=== PATIENT | female | born 1990 | race Hispanic/Latino ===

== ENCOUNTER 2018-01-01 21:59 | Inpatient (IN) | payer MEDICAID ==
[2018-01-01 22:52] LABS: HCG,QUALITATIVE URINE POSITIVE (NEGATIVE)
[2018-01-01 22:53] LABS: BASO # 0.1 K/uL (0.0-0.2); BASO % 0.4 % (0.0-2.0); EOS # 0.1 K/uL (0.0-0.7); EOS % 0.4 % (0.0-4.0); HEMOGLOBIN 12.6 g/dL (11.0-16.0); LYMPH # 3.4 K/uL (1.0-4.3); LYMPH % 20.2 % (20.0-40.0); MEAN CORPUSCULAR HEMOGLOBIN 30.4 pg (27.0-31.0); MEAN CORPUSCULAR HGB CONC 33.7 g/dL (33.0-37.0); MEAN PLATELET VOLUME 8.3 fL (7.2-11.7); MONO # 0.9 K/uL (0.0-0.8); MONO % 5.1 % (0.0-10.0); NEUT # 12.5 K/uL (1.8-7.0); NEUT % 73.9 % (50.0-75.0); RBC 4.15 Mil/uL (3.80-5.20); RED CELL DISTRIBUTION WIDTH 13.5 % (11.5-14.5); WHITE BLOOD COUNT 16.9 K/uL (4.8-10.8)
[2018-01-01 22:56] LABS: SQUAMOUS EPITHIAL 3 /hpf (0-5); URINE BACTERIA RARE (<OCC); URINE BILIRUBIN NEGATIVE (NEGATIVE); URINE BLOOD NEGATIVE (NEGATIVE); URINE CALCIUM OXALATE CRYSTALS FEW /hpf (<OCC); URINE CLARITY Hazy (Clear); URINE COLOR Amber (YELLOW); URINE GLUCOSE (UA) NORMAL (Normal); URINE LEUKOCYTE ESTERASE NEG Leu/uL (Negative); URINE PROTEIN NEGATIVE (NEGATIVE)
[2018-01-01 23:03] LABS: BLOOD UREA NITROGEN 11 mg/dL (7-17); GFR AFRICAN-AMERICAN > 60; GFR NON-AFRICAN AMERICAN > 60
[2018-01-01 23:04] LABS: ALB/GLOB RATIO 1.3 (1.0-2.1); ALBUMIN 3.9 g/dL (3.5-5.0); ALT/SGPT 27 U/L (9-52); AST/SGOT 14 U/L (14-36); CALCIUM 9.1 mg/dl (8.6-10.4)
[2018-01-01 23:10] LABS: BARBITURATES, UR NEGATIVE (NEGATIVE); BENZODIAZEPINES, UR POSITIVE (NEGATIVE); OPIATES, UR POSITIVE (NEGATIVE); PHENCYCLIDINE, UR NEGATIVE (NEGATIVE)
--- NOTE | 2018-01-02 00:06 | C.PDOC ---
History Of Present Illness Pt is here requesting detox from Opioids and Benzos. Time Seen by Provider: 01/01/18 22:30 Chief Complaint (Nursing): Substance Abuse Past Medical History Reviewed: Historical Data, Nursing Documentation, Vital Signs Vital Signs: Last Vital Signs Temp 98.6 F 01/01/18 22:11 Pulse 76 01/01/18 22:11 Resp 20 01/01/18 22:11 BP 117/68 01/01/18 22:11 Pulse Ox 98 01/01/18 22:11 - Medical History PMH: Bipolar Disorder, Depression Other PMH: Pt states that she is 16 weeks Surgical History: No Surg Hx Family History: States: Unknown Family Hx - Social History Hx Tobacco Use: Yes Hx Alcohol Use: No Hx Substance Use: Yes (Snorts Heroin) - Immunization History Hx Tetanus Toxoid Vaccination: No Hx Influenza Vaccination: No Hx Pneumococcal Vaccination: No Review Of Systems Except As Marked, All Systems Reviewed And Found Negative. Constitutional: Negative for: Fever Cardiovascular: Negative for: Chest Pain Respiratory: Negative for: Cough, Shortness of Breath Gastrointestinal: Negative for: Abdominal Pain Genitourinary: Negative for: Dysuria, Vaginal Discharge, Vaginal Bleeding, Pelvic Pain Musculoskeletal: Negative for: Neck Pain, Back Pain Skin: Negative for: Rash Neurological: Negative for: Weakness, Numbness Physical Exam - Physical Exam Appears: Non-toxic, No Acute Distress Skin: Normal Color, Warm, Dry, No Rash Head: Atraumatic, Normacephalic Eye(s): bilateral: Normal Inspection, PERRL, EOMI Neck: Normal ROM, Supple Cardiovascular: Rhythm Regular Respiratory: Normal Breath Sounds, No Accessory Muscle Use Gastrointestinal/Abdominal: Soft, No Tenderness, Other (Gravid) Back: No CVA Tenderness Extremity: Normal ROM, No Pedal Edema, No Calf Tenderness Neurological/Psych: Oriented x3, Normal Motor, Normal Sensation ED Course And Treatment - Laboratory Results Result Diagrams: 01/01/18 22:46 01/01/18 22:46 Urine POC: Positive O2 Sat by Pulse Oximetry: 98 Pulse Ox Interpretation: Normal Progress Note: Pt is medically stable for detox admission. Disposition Counseled Patient/Family Regarding: Studies Performed, Diagnosis, Smoking Cessation - Disposition Disposition: HOSPITALIZED Disposition Time: 00:06 Condition: STABLE - Clinical Impression Clinical Impression: Opioid dependence, Sedative hypnotic or anxiolytic dependence, Decision To Admit - Pt Status Changed To: Hospital Disposition Of: Inpatient - Admit Certification Admit to Inpatient:: After my assessment, the patient will require hospitalization for at least two midnights. This is because of the severity of symptoms shown, intensity of services needed, and/or the medical risk in this patient being treated as an outpatient. - InPatient: Physician Admission Certification: I certify that this patient requires 2 or more midnights of care for the following reason:: Detox. - . Bed Request Type: Detox Admitting Physician: Hansel Amado Patient Diagnosis: Opioid dependence, Sedative hypnotic or anxiolytic dependence,
--- NOTE | 2018-01-02 00:27 | PCM.BM ---
<Moriah Myers - Last Filed: 01/02/18 00:26> Treatment Plan Problems - Problems identified on initial assessmt Ineffective Coping Skills Date Initiated: 01/02/18 Time Initiated: 00:26 Assessment reference: NA Status: Active Treatment assets and liabiliti Patient Assests: ADL independent Patient Liabilities: live alone, financial problems, poor support system, substance abuse, other - Milieu Protocol Maintain good personal hygiene: daily Encourage regular showers, daily Remind patient to perform daily oral care, other Assist patient to perform ADL's Maintain personal safety: every shift Educate patient to report safety concerns to staff, every shift Monitor environment for contraband/sharps Medication safety: Monitor for expected outcome, potential side effects: every shift, Assess barriers to learning: every shift, Assess readiness for medication education: every shift <Hansel Amado - Last Filed: 01/02/18 12:07> - Diagnosis (1) Opioid dependence Status: Acute Interventions: 01/02/18 12:07 * Assess 7x/week regarding severity of withdrawal * Educate regarding risks, benefits, side effects and alternatives of medications * Use Motivational Interviewing for abstinence * Use CBT for relapse prevention * Medication management for withdrawal symptoms * Encourage medication assisted treatment * (2) Sedative hypnotic or anxiolytic dependence Status: Acute Interventions: 01/02/18 12:07 * Assess 7x/week regarding severity of withdrawal * Educate regarding risks, benefits, side effects and alternatives of medications * Use Motivational Interviewing for abstinence * Use CBT for relapse prevention * Medication management for withdrawal symptoms * Encourage medication assisted treatment *
[2018-01-02] MEDS: Prenatal Multivit/Folic Acid/Iron Tab PO SCH (10:23)
[2018-01-02] MEDS ORDERED: Buprenorphine Hydrochloride 2 mg SL ONE ×2 (11:00→12:15)
--- NOTE | 2018-01-02 11:58 | PCM.PSYCH ---
Initial Psychiatric Evaluation - Initial Psychiatric Evaluation Type of Admission: Voluntary Legal Status: Capacity Chief Complaint (in patient's own words): "I have to stop this" History of Present Illness and Precipitating Events: The patient is seen, chart reviewed and case discussed. This is a 27-year-old female, single and for 16 weeks, lives alone, unemployed but on welfare. She used to bartend. She says that she found out she was mid October. The patient is here because she is using heroin 5 bags intranasally, started 3 weeks ago, however she started OxyContin around 60 mg since August 2017. She also uses Xanax 4-6 mg day, cigarettes one pack per day, cannabis also daily. She denies alcohol and other drugs. She started Xanax 2 years ago but escalated 4 months ago. She reports wdw sxs from both Xanax and heroin and asks for meds This is her third detox and rehabilitation was also twice; [facility] and [facility]. Past psych history: Anxiety but no admissions or suicide attempts. Family psych history: Parents were "alcoholics" Medical history: Denies Current Medications: Active Medications Generic Name Dose Route Start Last Admin Trade Name Freq PRN Reason Stop Dose Admin Acetaminophen 650 mg 01/02/18 08:41 Tylenol 325mg Tab PO Q6 PRN Pain, severe (8-10) Buprenorphine HCl 6 mg 01/02/18 12:15 Subutex SL 01/02/18 12:16 ONCE ONE Diphenhydramine HCl 50 mg 01/02/18 01:44 01/02/18 01:51 Benadryl PO 50 mg HS PRN Administration Insomnia Lorazepam 1 mg 01/02/18 09:00 01/02/18 09:45 Ativan PO 01/07/18 08:59 1 mg Q6H KELSEY Administration Taper Lorazepam 1 mg 01/02/18 08:42 Ativan PO Q6H PRN Symptoms Of Benzo Withdrawl Multivit/Folic Acid/Iron 1 tab 01/02/18 10:00 01/02/18 10:23 PO 1 tab DAILY KELSEY Administration Past Psychiatric History - Past Psychiatric History Previous Treatment History: None Pertinent Medical Hx (Current Medical&Sleep Prob, Allergies): Allergies Allergy/AdvReac Type Severity Reaction Status Date / Time No Known Allergies Allergy Unverified 01/01/18 22:15 RX: No Known Home Med 01/01/18 Review of Systems - Neurological Neurological: UNREMARKABLE - Psychiatric Psychiatric: Abnormal Sleep Pattern, Anxiety, Difficulty Concentrating, Irritability. absent: Hallucinations, Homicidal Ideation, Hopelessness, Paranoia, Suicidal Ideation Mental Status Examination - Personal Presentation Personal Presentation: Looks stated age - Affect Affect: Constricted - Motor Activity Motor Activity: Calm - Reliability in Providing Information Reliability in Providing Information: Good - Speech Speech: Organized - Mood Mood: Anxious - Formal Thought Process Formal Thought Process: No Impairment - Cognitive Functions Orientation: Person, Place, Situation, Time Sensorium: Alert Attention/Concentration: Attentive Estimate of Intelligence: Average Judgement: Imparied, as evidence by: Poor judgement (using while ), Intact, as evidence by: Insight regarding need for hospitalization Memory: Recent intact, as evidence by: Ability to recall events of the day, Remote intact, as evidenced by: Abilit to recall sig. life events - Risk Risk: Withdrawal, Diminished functioning - Strength & Assets Inventory Strength & Assets Inventory: Cooperative - Limitations Limitations: Other DSM 5 DX - DSM 5 DSM 5 Diagnosis: Opioid withdrawal Opioid use d/o -severe Sedative hypnotic use d/o- severe, withdrawal Cannabis use d/o- severe Tobacco use d/o- severe - Recommended/Plan of Treatment Treatment Recommendations and Plan of Treatment: Taper with subutex and ativan for opioids and benzos respectively. As needed medications All risks, benefits and alternatives of the meds, including no-meds and including their risks during , discussed and the pt agreed and understood. Attend groups and activities Supportive therapy and psychoeducation [place] for abstinence CBT for relapse prevention Encourage MAT Refer to rehab or IOP, and self-help groups Smoking cessation with UT Nicotine patch if needed 34 min Projected ELOS: 5-6 days Prognosis: Good with treatment Discharge Plan and Discharge Criteria: No wdw sxs Refer to IOp vs rehab - Smoking Cessation Smoking Cessation Initiated: Yes
[2018-01-03] MEDS: Prenatal Multivit/Folic Acid/Iron Tab PO SCH (09:29)
[2018-01-03] MEDS: Buprenorphine Hydrochloride 2 mg SL SCH (09:30)
--- NOTE | 2018-01-03 11:39 | PCM.PYCHPN ---
Psychiatric Progress Note - Psychiatric Progress Note Patient seen today, length of contact: 15 min Patient Chief Complaint: I am feeling anxious.' Problems Identified/Issues Discussed: Patient seen and evaluated, chart reviewed and discussed with the nurse. Patient still reports withdrawal symptoms including anxiety, nausea, headaches, cramps and sweating. She reports irritable mood but denies any SI/HI/AVH. Patient remained isolated, confined and withdrawn. She is taking medication and denies any side effects. She needs more time for stabilization. Supportive therapy and psychoeducation were given. Medication Change: Yes (Ativan taper, Subutex taper) Medical Record Reviewed: Yes Mental Status Examination - Cognitive Function Orientation: Person, Place, Situation, Time Memory: Intact Attention: WNL Concentration: Poor Association: WNL Fund of Knowledge: Poor - Mood Mood: Anxious - Affect Affect: Constricted - Speech Speech: Soft - Formal Thought Process Formal Thought Process: No Impairment - Suicidal Ideation Suicidal Ideation: No - Homicidal Ideation Homicidal Ideation: No Goal/Treatment Plan - Goal/Treatment Plan Need for Continued Stay: Severe depression anxiety, Severe functional impairment Progress Toward Problem(s) and Goals/Treatment Plan: Opioid withdrawal Opioid use d/o -severe Sedative hypnotic use d/o- severe, withdrawal Cannabis use d/o- severe Tobacco use d/o- severe Taper with subutex and ativan for opioids and benzos respectively. As needed medications All risks, benefits and alternatives of the meds, including no-meds and including their risks during , discussed and the pt agreed and understood. Attend groups and activities Supportive therapy and psychoeducation [place] for abstinence CBT for relapse prevention Encourage MAT Refer to rehab or IOP, and self-help groups Smoking cessation with UT Nicotine patch if needed - Smoking Cessation Smoking Cessation Initiated: No
[2018-01-04] MEDS: Prenatal Multivit/Folic Acid/Iron Tab PO SCH (09:31)
[2018-01-04] MEDS: Buprenorphine Hydrochloride 2 mg SL SCH (09:33)
--- NOTE | 2018-01-04 10:41 | PCM.PYCHPN ---
Psychiatric Progress Note - Psychiatric Progress Note Patient seen today, length of contact: 16 min Patient Chief Complaint: I ma feeling little better.' Problems Identified/Issues Discussed: Patient seen and evaluated, chart reviewed and discussed with the nurse. She reports anxiety and irritability, but less than yesterday. Patient still reports withdrawal symptoms including anxiety, nausea, headaches, cramps and sweating. She is taking medication and denies any side effects. She needs more time for stabilization. Supportive therapy and psychoeducation were given. Medication Change: Yes (Subutex and ativan taper) Medical Record Reviewed: Yes Mental Status Examination - Cognitive Function Orientation: Person, Place, Situation, Time Memory: Intact Attention: WNL Concentration: WNL Association: WNL Fund of Knowledge: Poor - Mood Mood: Anxious - Affect Affect: Constricted - Speech Speech: Soft - Formal Thought Process Formal Thought Process: No Impairment - Suicidal Ideation Suicidal Ideation: No - Homicidal Ideation Homicidal Ideation: No Goal/Treatment Plan - Goal/Treatment Plan Need for Continued Stay: Severe depression anxiety, Severe functional impairment Progress Toward Problem(s) and Goals/Treatment Plan: Opioid withdrawal Opioid use d/o -severe Sedative hypnotic use d/o- severe, withdrawal Cannabis use d/o- severe Tobacco use d/o- severe Taper with subutex and ativan for opioids and benzos respectively. As needed medications All risks, benefits and alternatives of the meds, including no-meds and including their risks during , discussed and the pt agreed and understood. Attend groups and activities Supportive therapy and psychoeducation [place] for abstinence CBT for relapse prevention Encourage MAT Refer to rehab or IOP, and self-help groups Smoking cessation with [place] Nicotine patch if needed - Smoking Cessation Smoking Cessation Initiated: No
[2018-01-05] MEDS: Prenatal Multivit/Folic Acid/Iron Tab PO SCH (09:11)
[2018-01-05] MEDS: Buprenorphine Hydrochloride 2 mg SL SCH (09:11)
--- NOTE | 2018-01-05 12:25 | PCM.PYCHPN ---
Psychiatric Progress Note - Psychiatric Progress Note Patient seen today, length of contact: 15 min Patient Chief Complaint: "I am better" Problems Identified/Issues Discussed: The pt is seen, chart reviewed, case discussed with staff. The pt is compliant with medications and reports no side-effects. Symptoms are improving but needs more time to stabilize. After care discussed, support and psychoeducation given. Welfare form filled Medication Change: Yes (Ativan taper, Subutex taper) Medical Record Reviewed: Yes Mental Status Examination - Cognitive Function Orientation: Person, Place, Situation, Time Memory: Intact Attention: WNL Concentration: Poor Association: WNL Fund of Knowledge: Poor - Mood Mood: Anxious - Affect Affect: Constricted - Speech Speech: Soft - Formal Thought Process Formal Thought Process: No Impairment - Suicidal Ideation Suicidal Ideation: No - Homicidal Ideation Homicidal Ideation: No Goal/Treatment Plan - Goal/Treatment Plan Need for Continued Stay: Discharge may exacerbated symptoms, Severe functional impairment Progress Toward Problem(s) and Goals/Treatment Plan: Taper with subutex and ativan for opioids and benzos respectively. As needed medications All risks, benefits and alternatives of the meds, including no-meds and including their risks during , discussed and the pt agreed and understood. Attend groups and activities Supportive therapy and psychoeducation [place] for abstinence CBT for relapse prevention Encourage MAT Refer to rehab or IOP, and self-help groups Smoking cessation with CT Nicotine patch if needed
--- NOTE | 2018-01-05 17:33 | US ---
PROCEDURE: Second trimester ultrasound LMP 09/06/2017 HISTORY: 16 weeks , no USG COMPARISON: None available. TECHNIQUE: Standard protocol for this study/examination. FINDINGS: Breech presentation. Posterior and fundal Placenta. No evidence of abruption or previa Gestational age derived from LMP17 weeks 2 days. DAYANA 06/13/2018. Gestational age derived from the following biometric [id number] weeks. DAYANA 06/15/2018 Biparietal diameter 3.73 cm Head [id number] cm Abdominal circumference 11.9 cm Femur length 2.1 cm Estimated weight 175 g Calculated cardiac rate 139 beats per min. Closed cervix measuring 2.59 cm IMPRESSION: Gestation 17 weeks live intrauterine gestation. Gestational concordance documented.
--- NOTE | 2018-01-06 08:41 | PCM.PYCHDC ---
Mental Status Examination - Mental Status Examination Orientation: Person, Place, Situation Memory: Intact Mood: Neutral Affect: Broad Speech: Appropriate Attention: WNL Concentration: WNL Association: WNL Fund of Knowledge: WNL Formal Thought Process: No Impairment Suicidal Ideation: No Current Homicidal Ideation?: No Discharge Summary - Discharge Note Reason for Hospitalization: Opioid use disorder detox and Sedatitive hypnotic use disorder detox Consultations:: List each consultation separately and include: 1. Reason for request. 2. Findings. 3. Follow-up Summary of Hospital Course include:: 1. Description of specific treatment plan utilized for patients during their course of treatmen. 2. Summarize the time- course for resolution of acute symptoms and/or regressed behaviors. 3. Describe issues identified and worked on during hospitalization. 4. Describe medication utilized. 5. Describe medical problems identified and treated. 6. Reassessment of suicide risk Summary of Hospital Course: On Admission: The patient is seen, chart reviewed and case discussed. This is a 27-year-old female, single and for 16 weeks, lives alone, unemployed but on welfare. She used to [employer]. She says that she found out she was mid October. The patient is here because she is using heroin 5 bags intranasally, started 3 weeks ago, however she started OxyContin around 60 mg since August 2017. She also uses Xanax 4-6 mg day, cigarettes one pack per day, cannabis also daily. She denies alcohol and other drugs. She started Xanax 2 years ago but escalated 4 months ago. She reports wdw sxs from both Xanax and heroin and asks for meds This is her third detox and rehabilitation was also twice; [facility]. Past psych history: Anxiety but no admissions or suicide attempts. Family psych history: Parents were "alcoholics" Medical history: Denies Hospital course: The pt was admitted and started on treatment with psychotherapy, support, psychoeducation and medications, including Subutex taper, Ativan taper, Benadryl 50mg HS PRN, Tylenol 650mg Q6 PRN, and Multivitamins. [place] and CBT used. The pt attended groups and activities, as well as milieu therapy. Patient was sent for an obstetric ultrasound and results were normal. All the risks and benefits ofmedications are discussed and the patient understood and agreed. The pt improved with the treatments provided. After care discussed with the patient. Wants to go to a subutex or methadone maintenance. Likely follow up: Justine Sandoval suboxone maintenance doctor [facility] [address] [place] [address] - Final Diagnosis (DSM 5) Condition upon Discharge: STABLE DSM 5: Opioid withdrawal Opioid use d/o -severe Sedative hypnotic use d/o- severe Cannabis use d/o- severe Tobacco use d/o- severe Disposition: HOME/ ROUTINE Follow-up Treatment Plan: Follow after care plan as discussed. Use relapse prevention skills. Return to ER or call 911 if suicidal, homicidal or symptoms relapse. Stay away from stress, alcohol, and drugs. See primary doctor and OB regularly and get labs. - Antipsychotic Medications Pt discharged on 2 or more routine antipsychotic medications: No
[2018-01-06] MEDS: Prenatal Multivit/Folic Acid/Iron Tab PO SCH (09:03)
[2018-01-06 09:33] VITALS: BP 120/76; PULSE 77; RESP 19; TEMP 98.2; O2SAT 100
== END 2018-01-06 10:00 | disposition home or self-care (01) | DRG 886 ==
LOC: C.ER 21:59 → C.7D 01-02 00:09
PROVIDERS: ADMIT Psychiatry & Neurology Psychiatry; ATTEND Psychiatry & Neurology Psychiatry
PROC: HZ2ZZZZ Detoxification Services for Substance Abuse Treatment (ICD-10-PCS; principal; 2018-01-02)
DX: O99.322 Drug use complicating pregnancy, second trimester (principal); F11.23 Opioid dependence with withdrawal; F12.90 Cannabis use, unspecified, uncomplicated; O99.342 Other mental disorders complicating pregnancy, second trimester; Z3A.16 16 weeks gestation of pregnancy; Z72.0 Tobacco use; F41.9 Anxiety disorder, unspecified; F31.9 Bipolar disorder, unspecified; F19.10 Other psychoactive substance abuse, uncomplicated